=== PATIENT | male | born 1985 | race Caucasian/White ===

== ENCOUNTER 2020-03-27 11:57 | Emergency (ER) | payer OTHER, SELFPAY ==
--- NOTE | ~2020-03-27 | XR_ITS ---
XR finger 1st LT min 2V 03/27/2020 12:30 Indication: Hyperextension injury to the left first finger Procedure: 3 views left first finger Comparison: No prior studies for comparison. Findings: There is dorsal subluxation of the first finger at the MCP joint. No fracture is identified . No significant soft tissue abnormality. Mild degenerative changes of the interphalangeal joint. Impression: 1: Dorsal subluxation of the first finger at the MCP joint. No associated fracture. Reviewed, dictated and finalized at location A. NT SELECTOR Impression: 1: Dorsal subluxation of the first finger at the MCP joint. No associated fract ure.
[2020-03-27 12:15] VITALS: BP 130/90; PULSE 79; RESP 18; TEMP 37.3; O2SAT 98
--- NOTE | 2020-03-27 13:50 | ED.GENADULT ---
HPI - General Adult General Chief complaint: Extremity Injury, Upper Stated complaint: Extremity Injury, Upper Source: patient Mode of arrival: ambulatory Limitations: no limitations History of Present Illness HPI narrative: Patient presents for evaluation of pain and swelling in the left thumb. Last night he tripped over railroad ties while looking for his dog while it was dark outside. He landed with his arms outstretched. He did not hit his head or have loss of consciousness. He is not on any blood thinners. He has noted pain and swelling to the left hand, surrounding the left thumb since that time. He has decreased range of motion in the left thumb. He denies any paresthesias. He states that pain is moderate in severity, without descriptive quality or numerical rating. He has not taken any medication for pain. No additional complaints or concerns. Related Data Home Medications Medication Instructions Recorded Confirmed No Home Medications 03/27/20 03/27/20 Allergies Allergy/AdvReac Type Severity Reaction Status Date / Time No Known Allergies Allergy Verified 03/27/20 12:24 Review of Systems Review of Systems: Narrative: CONSTITUTIONAL: Denies fever, chills, or sweats. EYES: Denies visual changes, redness, or discharge. ENT: Denies rhinorrhea, congestion, sore throat, or otalgia. CARDIOVASCULAR: Denies chest pain, palpitations. RESPIRATORY: Denies cough or dyspnea. GASTROINTESTINAL: Denies abdominal pain, nausea, vomiting, or diarrhea. GENITOURINARY: Denies dysuria or hematuria. SKIN: Denies rash or itching. MUSCULOSKELETAL: Denies back pain. Reports pain and swelling in the left hand. Reports decreased range of motion in the left thumb NEUROLOGIC: Denies headache, numbness, dizziness, or weakness. PSYCHIATRIC: Denies anxiety or depression. [facility] Past Medical History Medical History (Updated 03/27/20 @ 14:00 by Mo Bennett, MATTHIEU, ROYA) No pertinent past medical history Surgical History Surgical History History of arthroscopic surgery of shoulder Family History Family History Father Family history of heart disease in male family member before age 55 Social History Social History Smoking status: Never smoker Alcohol intake: current Alcohol use details: socially Substance use: never Living arrangements: with family Additional living arrangements comments: Lives with Gender identity (if verbalized by the patient): Male Sexual Orientation (if Verbalized by the Patient): Straight or Heterosexual Spiritual care concerns: No Exam Narrative: Exam Narrative: GENERAL: Well-appearing, well-nourished, and in no acute distress. HEAD: Normocephalic, atraumatic. EYES: PERRLA and EOMI. ENT: Nares clear, no rhinorrhea or epistaxis. Mucous membranes moist. Oropharynx without tonsillar hypertrophy exudate or other lesions. Bilateral TMs pearly watson nonbulging NECK: Supple. No adenopathy or masses. No carotid bruits or JVD CHEST: Clear to auscultation. No respiratory distress. No wheezes rales or rhonchi HEART: Regular rate and rhythm. No murmur heard. Normal peripheral pulses. ABDOMEN: Soft, nontender, nondistended, normal active bowel sounds. EXTREMITIES: Swelling in the palmar aspect of the left hand along the thenar space. There is a deformity noted at MCP joint of left thumb. Decreased ROM of left thumb. Tenderness over MCP joint of 1st digit of left hand SKIN: Warm, dry, no rash. NEURO: No focal deficits. Alert and oriented x3. PSYCH: Normal mood and affect. Course Course Emergency Course: This is a 35-year-old male who presented with reports of pain and swelling to the left hand and decreased range of motion of the left thumb following a fall last night. X-ray showed dorsal subluxation o
[2020-03-27 13:54] VITALS: BP 152/79; PULSE 89
--- NOTE | 2020-03-27 14:12 | PC.NURSE ---
PT SIGNED CONSENT FORM FOR CLOSED REDUCTION OF THE LEFT THUMB MCP JOINTAT 1324. MARA REZA RN.
== END 2020-03-27 13:55 | disposition short-term general hospital (02) ==
PROVIDERS: Emergency Provider Nurse Practitioner
DX: S63.112A Subluxation of metacarpophalangeal joint of left thumb, initial encounter (principal); W18.09XA Striking against other object with subsequent fall, initial encounter
CPT/HCPCS: 26700; 73140; 99205; G0463

== ENCOUNTER 2020-03-27 14:19 | Emergency (ER) | payer OTHER, SELFPAY ==
[2020-03-27] VITALS (9 sets, daily range): BP systolic 142–172; BP diastolic 84–111; PULSE 78–95; RESP 13–24; TEMP 36.3–37.3; O2SAT 96–99
--- NOTE | ~2020-03-27 | XR_ITS ---
EXAMINATION: XR finger 1st LT min 2V DATE: 03/27/2020 16:05 INDICATION: Postreduction left first metacarpophalangeal dislocation. TECHNIQUE: Dorsal palmar and lateral views of the left first digit were obtained COMPARISON: None FINDINGS: Sessile reduction to normal alignment of the previously dislocated left first metacarpophalangeal jean marie nt. No fracture. Joint spaces are normal. Soft tissue swelling about the base of the thumb. IMPRESSION: 1. Successful reduction of previously dislocated left first metacarpophalangeal joint which is now in normal alignment. No other osseous abnormality. Reviewed, dictated and finalized at location A. PATIAL INFORMATION TECHNOLOGIST
--- NOTE | 2020-03-27 14:38 | ED.GENADULT ---
HPI - General Adult General Chief complaint: Extremity Injury, Upper <Melita Ndiaye MD - Last Filed: 03/27/20 17:15> Stated complaint: L thumb dislocation <Melita Ndiaye MD - Last Filed: 03/27/20 17:15> Time Seen by Provider: 03/27/20 14:25 <Melita Ndiaye MD - Last Filed: 03/27/20 17:15> Source: patient <Melita Ndiaye MD - Last Filed: 03/27/20 17:15> History of Present Illness HPI narrative: Patient is 35 y/o male complaining of left thumb pain since last night. He states that he was trying to find his dog and tripped over a railroad tire and fell. He describes his pain as aching and rates it as 4/10. Movement worsens the pain. He was seen at urgent care and attempted reduction was unsuccessful. <Melita Ndiaye MD - Last Filed: 03/27/20 17:15> Related Data Home medications: Home Medications Medication Instructions Recorded Confirmed No Home Medications 03/27/20 03/27/20 <Melita Ndiaye MD - Last Filed: 03/27/20 17:15> Allergies/adverse reactions: Allergies Allergy/AdvReac Type Severity Reaction Status Date / Time No Known Allergies Allergy Verified 03/27/20 12:24 <Melita Ndiaye MD - Last Filed: 03/27/20 17:15> Review of Systems Constitutional: Constitutional: Denies chills, Denies fever(s), Denies headache(s) and Denies weakness <Melita Ndiaye MD - Last Filed: 03/27/20 17:15> Eyes: Eyes: Denies blurry vision <Melita Ndiaye MD - Last Filed: 03/27/20 17:15> ENT: Denies headache(s) and Denies neck pain <Melita Ndiaye MD - Last Filed: 03/27/20 17:15> Cardiovascular: Cardiovascular: Denies chest pain and Denies dyspnea <Melita Ndiaye MD - Last Filed: 03/27/20 17:15> Respiratory: Respiratory: Denies cough and Denies dyspnea <Melita Ndiaye MD - Last Filed: 03/27/20 17:15> Gastrointestinal: Gastrointestinal: Denies abdominal pain, Denies diarrhea, Denies nausea and Denies vomiting <Melita Ndiaye MD - Last Filed: 03/27/20 17:15> Genitourinary: Genitourinary: Denies hematuria and Denies dysuria <Melita Ndiaye MD - Last Filed: 03/27/20 17:15> Musculoskeletal: Musculoskeletal: Reports as per HPI, Denies back pain, Denies neck pain and Reports other (left thumb pain) <Melita Ndiaye MD - Last Filed: 03/27/20 17:15> Neurologic: Denies headache(s) and Denies weakness <Melita Ndiaye MD - Last Filed: 03/27/20 17:15> PMFSH Past Medical History Medical History: Medical History No pertinent past medical history <Melita Ndiaye MD - Last Filed: 03/27/20 17:15> Surgical History Surgical History: Surgical History History of arthroscopic surgery of shoulder <Melita Ndiaye MD - Last Filed: 03/27/20 17:15> Family History Family History: Family History Father Family history of heart disease in male family member before age 55 <Melita Ndiaye MD - Last Filed: 03/27/20 17:15> Social History Social History: Social History Smoking status: Never smoker Alcohol intake: current Substance use: never Additional living arrangements comments: Lives with Gender identity (if verbalized by the patient): Male Spiritual care concerns: No <Melita Ndiaye MD - Last Filed: 03/27/20 17:15> Exam Const: General: no acute distress and well developed <Melita Ndiaye MD - Last Filed: 03/27/20 17:15> Orientation/consciousness: oriented to person, oriented to place, oriented to time and patient oriented x3 <Melita Ndiaye MD - Last Filed: 03/27/20 17:15> HENMT: Head: normocephalic <Melita Ndiaye MD - Last Filed: 03/27/20 17:15> Ears: external ears normal <Melita Ndiaye MD - Last Filed: 03/27/20 17:15> General nose exam: Normal external nose present <Melita Ndiaye MD - Last Filed: 03/27/20 17:15> Eyes: General: appe
--- NOTE | 2020-03-27 14:45 | PC.NURSE ---
Patient moved to room 22. Lidocaine, syringe, and needles placed in room for attempt at relocation of joint. Patient made aware of NPO status at this time.
--- NOTE | 2020-03-27 15:52 | PC.NURSE ---
1537-100mg Propofol given per verbal order of Dr Ndiaye. 1539-50mg Propofol given per verbal order of Dr Ndiaye 1540-50mg Propofol given per verbal order of Dr Ndiaye 1542-50mg Propofol given per verbal order of Dr Ndiaye 1544-50mg Propofol given per verbal order of Dr Ndiaye 1546-50mg Propofol given per verbal order of Dr Ndiaye 1548-left thumb relocated, splint applied, xray called for repeat xray
== END 2020-03-27 16:43 | disposition home or self-care (01) ==
PROVIDERS: Emergency Provider Emergency Medicine
DX: S63.115A Dislocation of metacarpophalangeal joint of left thumb, initial encounter (principal); W18.09XA Striking against other object with subsequent fall, initial encounter
CPT/HCPCS: 26700; 26775; 73140; 99285; J2704

== ENCOUNTER 2020-09-09 13:06 | Outpatient (CLI) | payer OTHER, SELFPAY ==
--- NOTE | ~2020-09-09 | US_ITS ---
EXAMINATION: US venous doppler [facility] DATE: 09/09/2020 13:53 INDICATION: Lower limb pain TECHNIQUE: Brown scale images without and with compression and Doppler images of the bilateral lower e xtremity veins were obtained. COMPARISON: None FINDINGS: The right common femoral vein, profunda femoral vein, femoral vein, popliteal vein, peroneal trunk, p osterior tibial veins, and greater saphenous vein are patent. The left common femoral vein, profunda femoral vein, femoral vein, popliteal vein, peroneal trunk, po sterior tibial veins, and greater saphenous vein are patent. IMPRESSION: 1. Patent bilateral lower extremity veins. No evidence of deep venous thrombosis. Reviewed, dictated and finalized at location B. IMPRESSION: 1. Patent bilateral lower extremity veins. No evidence of deep venous thrombosi s.
== END 2020-09-09 13:07 | disposition home or self-care (01) ==
LOC: ANHIMG 13:10
PROVIDERS: PCP Family Medicine; Visit Provider Nurse Practitioner Family
DX: M79.89 Other specified soft tissue disorders (principal)
CPT/HCPCS: 93970